=== PATIENT | male | born 1955 | race Caucasian/White ===

== ENCOUNTER 2018-08-07 15:45 | Emergency (ER) | payer OTHER, SELFPAY ==
[2018-08-07 15:51] VITALS: BP 143/87; PULSE 61; RESP 18; TEMP 36.4; O2SAT 95
--- NOTE | 2018-08-07 16:12 | W.ED.GENAD ---
Discharge Plan Disposition Patient Disposition: HOME Condition: Fair Discharge Details Chief Complaint: Orthopedic Clinical Impression: Fracture of distal end of fibula Primary Care Provider: Malachi Doyle ED Provider: Toshia Mejias Home Meds and New Rx's Prescriptions: Continue acetaminophen [Tylenol Arthritis Pain] 650 MG tablet extended release 650 mg PO hs prn RF: 0 TEST STRIPS 1 EACH strip 1 ea Miscellaneous DAILY Qty: 100 RF: 1 TEST STRIPS 1 EACH strip 1 ea Miscellaneous DAILY Qty: 100 RF: 1 aspirin [Aspirin Low-Strength] 81 MG tablet,chewable 81 mg PO DAILY RF: 0 rosuvastatin [Crestor] 20 MG tablet 20 mg PO DAILY Qty: 90 RF: 4 metformin 500 MG tablet extended release 24 hr 1,000 mg PO DAILY Qty: 180 RF: 4 lisinopril 5 MG tablet 5 mg PO DAILY Qty: 90 RF: 4 sertraline 50 MG tablet 1.5 tab PO DAILY Qty: 135 RF: 4 Discharge Instructions Instructions: Leg Fracture (ED) Additional Instructions: Encourage rest, ice, elevation. Tylenol and/or ibuprofen as needed for discomfort. Please keep boot on until evaluated by orthopedics. Use walker to help with ambulation. If you develop new or worsening symptoms please seek care urgently once again. Otherwise, please call orthopedics tomorrow to schedule follow-up appointment. Please follow up [facility] primary care to discuss diabetes. Stand Alone Forms: Work Release Referrals: Lefty Ortega MD [ [facility] STAFF PHYSICIAN] - ([phone]) Malachi Doyle MD [Primary Care Provider] - Discharge Data Discharge Date/Time-TO BE ENTERED AT DEPARTURE: 08/07/18 19:13 Medical Decision Making Patient is a 62 year old male presenting today with c/c of right knee, ankle and foot pain after fall at work. Reports that he slipped on wet floor and fell. Unclear if he struck the knee or ankle, unsure if he suffered a twisting injury. Patient reports since the time of the injury he has had medial sided knee pain, lateral foot and ankle pain. Has peripheral neuropathy associated with DM, denies acute change in sensation. Denies pain elsewhere from the injury. Has been able to ambulate with antalgic gait. Took Tylenol prior to arrival. On exam, patient has focal medial joint line tenderness of the right knee. Full ROM, no ligamentous injury noted. No effusion. Exam of the ankle and foot is significant for pain along the anteriolateral aspect of the ankle. He does express discomfort over the medial malleolus. Pain with palpation over the proximal 5th metatarsal. No swelling or deformity noted. Will augment Tylenol with Ibuprofen. Patient ambulating with slight limp. No acute distress. Will obtain XR of knee, ankle and foot. XR reviewed by myself and significant for distal fibular fracture. Discussed findings with the patient. Plan to place in walking boot and make him NWB with orthopedic f/u. X-ray reviewed by radiologist. They note an obliquely oriented minimally displaced fracture through the distal fibular diaphysis seen only on the lateral projection. Periosteal retraction of the distal posterior tibia. Visualized bones of the foot are intact. No dislocation. Soft tissues are unremarkable. Did recommend further evaluation with CT to evaluate to be of further. X-ray of the foot unremarkable per radiologist. X-ray of the knee without acute fracture dislocation. Joint spaces are normal Discussed with radiologist recommendation of CT with the patient. Will obtain CT with patient in the department CT reviewed by radiologist. Advised minimally displaced oblique distal fibular diaphysis fracture. Calcification of the posterior tibial periosteum versus heterotropic bone formation, possible sequela of prior chronic trauma. No acute tibial fracture identified. Visualized bone of the foot are intact. No dislocation. Moderate degree of subcutaneous fluid and edema within the ankle, predominantly around the lateral aspect Discussed these results wtih the patient. He will remain in walking boot. Has used walker in the past, will use this again to help keep weight off of the ankle. I am concerned given the patient's weight and his diabetes that he may be at higher risk fro difficulty with healing. I discussed this with the patient. Encouraged rest, ice, elevation. Tylenol and/or Motrin as needed for discomfort. I ialso advised that he follow up with primary care to discuss his DM further as he has not had any A1C checked in the past 2 years. He will call orthopedics to schedule appointment. Discussed activities that he should avoid. All of his quesitons adn cconcerns were addressed, he is in agreeemtn with this plan. All ofhis questions and concerns were addressed, he is in agreeement with this plan. HPI General Mode of arrival: ambulatory. Date/Time Provider Initiated Documentation: 08/07/18 16:02. Limitations to Documentation: no limitations. Information obtained by: patient. History of Present Illness 62 year old M presents to the emergency department with the chief complaint of right knee, ankle and foot pain, described as severe, with intensity rated at 10. Quality is described as sharp, and is localized to the right and lower extremity. Patient reports no radiation. Related Data Home Medications Medication Instructions Recorded Confirmed acetaminophen [Tylenol Arthritis 650 mg PO hs prn 09/09/13 11/12/17 Pain] aspirin [Aspirin Low-Strength] 81 mg PO DAILY tab-cap 10/19/15 11/12/17 rosuvastatin [Crestor] 20 mg PO DAILY #90 tab-cap 07/16/17 metformin 1,000 mg PO DAILY #180 tab-cap 08/15/17 lisinopril 5 mg PO DAILY #90 tab-cap 02/28/18 sertraline 1.5 tab PO DAILY #135 tab 05/26/18 Previous Rx's Medication Instructions Recorded rosuvastatin [Crestor] 20 mg PO DAILY #90 tab-cap 07/16/17 metformin 1,000 mg PO DAILY #180 tab-cap 08/15/17 lisinopril 5 mg PO DAILY #90 tab-cap 02/28/18 sertraline 1.5 tab PO DAILY #135 tab 05/26/18 Allergies Allergy/AdvReac Type Severity Reaction Status Date / Time No Known Allergies Allergy Unverified 08/07/18 15:55 General Stated Complaint: Orthopedic ARIADNE: 4 Review of Systems Constitutional Reports as per HPI, Denies chills, Denies fever(s), Denies frequent falls and Denies headache(s) Eyes Denies change in vision ENT Denies dizziness and Denies headache(s) Cardiovascular Denies chest pain, Denies syncope and Denies dyspnea Respiratory Denies cough and Denies dyspnea Gastrointestinal Denies nausea and Denies vomiting Musculoskeletal Reports as per HPI Integumentary/Breasts Denies erythema, Denies rash, Denies skin swelling, Denies sores and Denies wounds Neurologic Denies dizziness, Denies syncope, Denies frequent falls, Denies headache(s) and Reports paresthesias (reports this is chronic and unchanged) PFSH Family History Mother Neoplasm Social History Smoking/Tobacco Use Status: Never Exam Const General: cooperative, healthy appearing, comfortable, no acute distress and well developed Nutritional Appearance: well nourished and obese Orientation: alert and awake [facility] Head: normal to inspection, normocephalic and atraumatic Eyes General: appearance normal, both eyes and all related structures Resp Effort & Inspection: normal respiratory effort, able to speak in complete sentences and no respiratory distress Auscultation: clear to auscultation bilaterally, no rales, no rhonchi and no wheezes Cardio Rate: regular rate Rhythm: regular rhythm Heart Sounds: S1 normal Back/Spine/Pelvis Cervical Spine: normal cervical lordosis and cervical ROM normal Thoracic/Lumbar Spine: thoracic and lumbar spine normal to inspection, paraspinal tenderness, No thoracic spinal tenderness and No lumbar spinal tenderness Skin General skin exam: no rashes or lesions noted Trauma: no lacerations or abrasions Wounds: no wounds Neuro General: alert and awake Cognition: normal cognition Speech: speech normal Gait: antalgic Motor: muscle tone normal throughout Sensory Exam: no sensory deficits noted Extrem Right lower extremity: normal capillary refill, no joint enlargement, hip/thigh Details: normal to inspection, knee Details: tenderness (tenderness along the joint line just medial to the patella. No laxity noted, no pain with ligamentous testing. Full ROM. No swelling, no effusion. No evidence of trauma), normal ROM and knee ligament exam normal; no swelling, no ecchymosis, no crepitus and no unusual warmth, lower leg Details: normal to inspection and no edema; no erythema, no tenderness, no localized swelling, no palpable cords and no pitting edema, ankle Details: tenderness Location: of the lateral malleolus and anteromedially; not of the achilles tendon, no edema and abnormal ROM Details: pain with active ROM and pain with passive ROM; no swelling, no edema, no unusual warmth, no ecchymosis, no crepitus and achilles tendon exam normal and foot Details: normal capillary refill and tenderness Location: of the lateral foot Location: proximally and at the base of 5th metatarsal; no edema Psych Appearance: grossly normal and well kempt Mental Status: mental status grossly normal Speech and Movement: speech and movement normal Course Vital Signs Temperature 36.4 C L 08/07/18 15:51 Pulse 61 08/07/18 15:51 Respiratory Rate 18 08/07/18 15:51 Blood Pressure 143/87 H 08/07/18 15:51 Pulse Oximetry 95 08/07/18 15:51 Temperature 36.4 C L 08/07/18 15:51 Temperature Source Skin 08/07/18 15:51 Pulse 61 08/07/18 15:51 Respiratory Rate 18 08/07/18 15:51 Respiratory Effort 08/07/18 15:54 Blood Pressure 143/87 H 08/07/18 15:51 Blood Pressure Position Sitting 08/07/18 15:51 Pulse Oximetry 95 08/07/18 15:51 Oxygen Delivery Method Room Air 08/07/18 15:51 Oxygen Flow Rate 0 08/07/18 15:51 Pain Level 10 08/07/18 15:51
--- NOTE | 2018-08-07 16:17 | ED.GENADUL_ITS ---
Discharge Plan Disposition Patient Disposition: HOME Condition: Fair Discharge Details Chief Complaint: Orthopedic Clinical Impression: Fracture of distal end of fibula Primary Care Provider: Malachi Doyle ED Provider: Toshia Mejias Home Meds and New Rx's Prescriptions: Continue acetaminophen [Tylenol Arthritis Pain] 650 MG tablet extended release 650 mg PO hs prn RF: 0 TEST STRIPS 1 EACH strip 1 ea Miscellaneous DAILY Qty: 100 RF: 1 TEST STRIPS 1 EACH strip 1 ea Miscellaneous DAILY Qty: 100 RF: 1 aspirin [Aspirin Low-Strength] 81 MG tablet,chewable 81 mg PO DAILY RF: 0 rosuvastatin [Crestor] 20 MG tablet 20 mg PO DAILY Qty: 90 RF: 4 metformin 500 MG tablet extended release 24 hr 1,000 mg PO DAILY Qty: 180 RF: 4 lisinopril 5 MG tablet 5 mg PO DAILY Qty: 90 RF: 4 sertraline 50 MG tablet 1.5 tab PO DAILY Qty: 135 RF: 4 Discharge Instructions Instructions: Leg Fracture (ED) Additional Instructions: Encourage rest, ice, elevation. Tylenol and/or ibuprofen as needed for discomfort. Please keep boot on until evaluated by orthopedics. Use walker to help with ambulation. If you develop new or worsening symptoms please seek care urgently once again. Otherwise, please call orthopedics tomorrow to schedule follow-up appointment. Please follow up [facility] primary care to discuss diabetes. Stand Alone Forms: Work Release Referrals: Lefty Ortega MD [ [facility] STAFF PHYSICIAN] - ([phone]) Malachi Doyle MD [Primary Care Provider] - Discharge Data Discharge Date/Time-TO BE ENTERED AT DEPARTURE: 08/07/18 19:13 Medical Decision Making Patient is a 62 year old male presenting today with c/c of right knee, ankle and foot pain after fall at work. Reports that he slipped on wet floor and fell. Unclear if he struck the knee or ankle, unsure if he suffered a twisting injury. Patient reports since the time of the injury he has had medial sided knee pain, lateral foot and ankle pain. Has peripheral neuropathy associated with DM, denies acute change in sensation. Denies pain elsewhere from the injury. Has been able to ambulate with antalgic gait. Took Tylenol prior to arrival. On exam, patient has focal medial joint line tenderness of the right knee. Full ROM, no ligamentous injury noted. No effusion. Exam of the ankle and foot is significant for pain along the anteriolateral aspect of the ankle. He does express discomfort over the medial malleolus. Pain with palpation over the proximal 5th metatarsal. No swelling or deformity noted. Will augment Tylenol with Ibuprofen. Patient ambulating with slight limp. No acute distress. Will obtain XR of knee, ankle and foot. XR reviewed by myself and significant for distal fibular fracture. Discussed findings with the patient. Plan to place in walking boot and make him NWB with orthopedic f/u. X-ray reviewed by radiologist. They note an obliquely oriented minimally displaced fracture through the distal fibular diaphysis seen only on the lateral projection. Periosteal retraction of the distal posterior tibia. Visualized bones of the foot are intact. No dislocation. Soft tissues are unremarkable. Did recommend further evaluation with CT to evaluate to be of further. X-ray of the foot unremarkable per radiologist. X-ray of the knee without acute fracture dislocation. Joint spaces are normal Discussed with radiologist recommendation of CT with the patient. Will obtain CT with patient in the department CT reviewed by radiologist. Advised minimally displaced oblique distal fibular diaphysis fracture. Calcification of the posterior tibial periosteum versus heterotropic bone formation, possible sequela of prior chronic trauma. No acute tibial fracture identified. Visualized bone of the foot are intact. No dislocation. Moderate degree of subcutaneous fluid and edema within the ankle, predominantly around the lateral aspect Discussed these results wtih the patient. He will remain in walking boot. Has used walker in the past, will use this again to help keep weight off of the ankle. I am concerned given the patient's weight and his diabetes that he may be at higher risk fro difficulty with healing. I discussed this with the patient. Encouraged rest, ice, elevation. Tylenol and/or Motrin as needed for discomfort. I ialso advised that he follow up with primary care to discuss his DM further as he has not had any A1C checked in the past 2 years. He will call orthopedics to schedule appointment. Discussed activities that he should avoid. All of his quesitons adn cconcerns were addressed, he is in agreeemtn with this plan. All ofhis questions and concerns were addressed, he is in agreeement with this plan. HPI General Mode of arrival: ambulatory . Date/Time Provider Initiated Documentation: 08/07/18 16:02 . Limitations to Documentation: no limitations . Information obtained by: patient . History of Present Illness 62 year old M presents to the emergency department with the chief complaint of right knee, ankle and foot pain, described as severe, with intensity rated at 10. Quality is described as sharp, and is localized to the right and lower extremity. Patient reports no radiation. Related Data Home Medications Medication Instructions Recorded Confirmed acetaminophen [Tylenol Arthritis 650 mg PO hs prn 09/09/13 11/12/17 Pain] aspirin [Aspirin Low-Strength] 81 mg PO DAILY tab-cap 10/19/15 11/12/17 rosuvastatin [Crestor] 20 mg PO DAILY #90 tab-cap 07/16/17 metformin 1,000 mg PO DAILY #180 tab-cap 08/15/17 lisinopril 5 mg PO DAILY #90 tab-cap 02/28/18 sertraline 1.5 tab PO DAILY #135 tab 05/26/18 Previous Rx's Medication Instructions Recorded rosuvastatin [Crestor] 20 mg PO DAILY #90 tab-cap 07/16/17 metformin 1,000 mg PO DAILY #180 tab-cap 08/15/17 lisinopril 5 mg PO DAILY #90 tab-cap 02/28/18 sertraline 1.5 tab PO DAILY #135 tab 05/26/18 Allergies Allergy/AdvReac Type Severity Reaction Status Date / Time No Known Allergies Allergy Unverified 08/07/18 15:55 General Stated Complaint: Orthopedic ARIADNE: 4 Review of Systems Constitutional Reports as per HPI, Denies chills, Denies fever(s), Denies frequent falls and Denies headache(s) Eyes Denies change in vision ENT Denies dizziness and Denies headache(s) Cardiovascular Denies chest pain, Denies syncope and Denies dyspnea Respiratory Denies cough and Denies dyspnea Gastrointestinal Denies nausea and Denies vomiting Musculoskeletal Reports as per HPI Integumentary/Breasts Denies erythema, Denies rash, Denies skin swelling, Denies sores and Denies wounds Neurologic Denies dizziness, Denies syncope, Denies frequent falls, Denies headache(s) and Reports paresthesias (reports this is chronic and unchanged) PFSH Family History Mother Neoplasm Social History Smoking/Tobacco Use Status: Never Exam Const General: cooperative, healthy appearing, comfortable, no acute distress and well developed Nutritional Appearance: well nourished and obese Orientation: alert and awake [facility] Head: normal to inspection, normocephalic and atraumatic Eyes General: appearance normal, both eyes and all related structures Resp Effort & Inspection: normal respiratory effort, able to speak in complete sentences and no respiratory distress Auscultation: clear to auscultation bilaterally, no rales, no rhonchi and no wheezes Cardio Rate: regular rate Rhythm: regular rhythm Heart Sounds: S1 normal Back/Spine/Pelvis Cervical Spine: normal cervical lordosis and cervical ROM normal Thoracic/Lumbar Spine: thoracic and lumbar spine normal to inspection, paraspinal tenderness, No thoracic spinal tenderness and No lumbar spinal tenderness Skin General skin exam: no rashes or lesions noted Trauma: no lacerations or abrasions Wounds: no wounds Neuro General: alert and awake Cognition: normal cognition Speech: speech normal Gait: antalgic Motor: muscle tone normal throughout Sensory Exam: no sensory deficits noted Extrem Right lower extremity: normal capillary refill, no joint enlargement, hip/thigh Details: normal to inspection, knee Details: tenderness (tenderness along the joint line just medial to the patella. No laxity noted, no pain with ligamentous testing. Full ROM. No swelling, no effusion. No evidence of trauma) , normal ROM and knee ligament exam normal; no swelling, no ecchymosis, no crepitus and no unusual warmth, lower leg Details: normal to inspection and no edema; no erythema, no tenderness, no localized swelling, no palpable cords and no pitting edema, ankle Details: tenderness Location: of the lateral malleolus and anteromedially; not of the achilles tendon, no edema and abnormal ROM Details: pain with active ROM and pain with passive ROM; no swelling, no edema, no unusual warmth, no ecchymosis, no crepitus and achilles tendon exam normal and foot Details: normal capillary refill and tenderness Location: of the lateral foot Location: proximally and at the base of 5th metatarsal; no edema Psych Appearance: grossly normal and well kempt Mental Status: mental status grossly normal Speech and Movement: speech and movement normal Course Vital Signs Temperature 36.4 C L 08/07/18 15:51 Pulse 61 08/07/18 15:51 Respiratory Rate 18 08/07/18 15:51 Blood Pressure 143/87 H 08/07/18 15:51 Pulse Oximetry 95 08/07/18 15:51 Temperature 36.4 C L 08/07/18 15:51 Temperature Source Skin 08/07/18 15:51 Pulse 61 08/07/18 15:51 Respiratory Rate 18 08/07/18 15:51 Respiratory Effort 08/07/18 15:54 Blood Pressure 143/87 H 08/07/18 15:51 Blood Pressure Position Sitting 08/07/18 15:51 Pulse Oximetry 95 08/07/18 15:51 Oxygen Delivery Method Room Air 08/07/18 15:51 Oxygen Flow Rate 0 08/07/18 15:51 Pain Level 10 08/07/18 15:51
[2018-08-07] MEDS: Ibuprofen 800 MG TAB PO (16:25)
--- NOTE | 2018-08-07 16:40 | DI.COMBO_ITS ---
SYMPTOM/DIAGNOSIS: FELL, PAIN, ? TIBIA FX RIGHT KNEE: Three views were obtained. No fracture is seen. RIGHT ANKLE: Four views were obtained. There is a nondisplaced fracture of the distal fibula. The ankle mortise is well maintained. Apparent osseous material is seen adjacent to posterior tibia. On CT, this had appearance consistent with heterotopic bone formation. No evidence of acute fracture of the tibia or calcaneus as visualized. RIGHT FOOT: Three views were obtained. No fracture is seen. RIGHT ANKLE CT; CT examination of the ankle was performed utilizing multi slice acquisition and multi planar reconstruction. The calcaneus and talus and bones of the mid foot appear intact. There is a mildly displaced fracture of the distal diaphysis of the fibula with no gross disruption of the tibiofibular or talofibular joints. There appears to be heterotopic bone formation posterior to the tibia which is fairly well corticated. The findings are consistent with a remote injury. Please correlate clinically.
--- NOTE | 2018-08-07 17:11 | DI.VRAD_ITS ---
EXAM: XR Right Ankle Complete, 3 or More Views CLINICAL HISTORY: 62 years old, male; Injury or trauma; Fall; Initial encounter; Blunt trauma; Ankle; Right TECHNIQUE: Frontal, lateral and oblique views of the right ankle. COMPARISON: No relevant prior studies available. FINDINGS: Bones/joints: Oblique oriented minimally displaced fracture through the distal fibular diaphysis seen only on lateral projection. Periosteal reaction of the distal posterior tibia. Visualized bones of the foot are intact. No dislocation. Soft tissues: Unremarkable. IMPRESSION: 1. Oblique oriented minimally displaced fracture through the distal fibular diaphysis seen only on lateral projection. 2. Periosteal reaction of the distal posterior tibia, suggestive of possible underlying nonvisualized distal tibial fracture. Recommend further evaluation with CT. Dictated and Authenticated by: Manuel Siu MD. Ordering:TOO HART MD
--- NOTE | 2018-08-07 17:13 | DI.VRAD_ITS ---
EXAM: XR Right Foot Complete, 3 or more Views EXAM DATE/TIME: 08/07/2018 4:12 PM CLINICAL HISTORY: 62 years old, male; Injury or trauma; Fall; Work related; Initial encounter; Blunt trauma; Foot; Right; Injury details: Prox 5th metatarsal pain TECHNIQUE: XR Right foot 3 or more views. COMPARISON: No relevant prior studies available. FINDINGS: Bones/joints: The bones of the foot are intact. No dislocation. Please refer to radiographs of the ankle performed at same time for evaluation of the distal tibia and fibula. Soft tissues: Unremarkable. IMPRESSION: Unremarkable bones of the foot. Please refer to radiographs of the ankle performed at same time for evaluation of the distal tibia and fibula. Dictated and Authenticated by: Manuel Siu MD. Ordering:TOO HART MD
--- NOTE | 2018-08-07 17:14 | DI.VRAD_ITS ---
EXAM: XR Right Knee, 3 Views EXAM DATE/TIME: 08/07/2018 4:40 PM CLINICAL HISTORY: 62 years old, male; Injury or trauma; Fall; Work related; Initial encounter; Blunt trauma; Knee; Bilateral TECHNIQUE: XR Right knee 3 views. COMPARISON: No relevant prior studies available. FINDINGS: Bones/joints: No acute fracture. No dislocation. Joint spaces are normal. Soft tissues: Unremarkable. IMPRESSION: No acute findings. Dictated and Authenticated by: Manuel Siu MD. Ordering:TOO HART MD
--- NOTE | 2018-08-07 18:43 | DI.VRAD_ITS ---
EXAM: CT Right Lower Extremity Without Intravenous Contrast, Ankle CLINICAL HISTORY: 62 years old, male; Injury or trauma; Fall; Work related; Initial encounter; Blunt trauma; Ankle; Right; Injury date: 08/07; Injury details: Fell at work, right ankle pain. TECHNIQUE: Axial computed tomography images of the right ankle without intravenous contrast. All CT scans at this facility use at least one of these dose optimization techniques: automated exposure control; mA and/or kV adjustment per patient size (includes targeted exams where dose is matched to clinical indication); or iterative reconstruction. Coronal and sagittal reformatted images were created and reviewed. COMPARISON: CR XR ANKLE RT COMPLETE 08/07/2018 4:28 PM FINDINGS: Bones/joints: Minimally displaced oblique distal fibular diaphysis fracture. Calcifications of the posterior tibial periosteum versus heterotopic bone formation, possibly sequela of prior chronic trauma. No acute tibial fracture identified. Visualized bones of the foot are intact. No dislocation. Soft tissues: Moderate degree of subcutaneous fluid and edema within the ankle, predominately around the lateral aspect. IMPRESSION: 1. Minimally displaced oblique distal fibular diaphysis fracture. 2. Calcifications of the posterior tibial periosteum versus heterotopic bone formation, possibly sequela of prior chronic trauma. No acute tibial fracture identified. Dictated and Authenticated by: Manuel Siu MD. Ordering:TOO HART MD
[2018-08-07 19:12] VITALS: BP 143/87; PULSE 61; RESP 18; TEMP 36.4; O2SAT 95
== END 2018-08-07 19:13 | disposition home or self-care (01) ==
PROVIDERS: Emergency Provider Physician Assistant; PCP Family Medicine
DX: S82.831A Other fracture of upper and lower end of right fibula, initial encounter for closed fracture (principal); M25.561 Pain in right knee; W01.0XXA Fall on same level from slipping, tripping and stumbling without subsequent striking against object, initial encounter; E11.9 Type 2 diabetes mellitus without complications
CPT/HCPCS: 27786; 73562; 99284; 73610; 73630; 73700; 99282; L4361

== ENCOUNTER 2018-08-08 08:30 | Emergency (ER) | payer BC, SELFPAY ==
[2018-08-08 08:36] VITALS: BP 143/87; PULSE 57; RESP 18; TEMP 36.4; O2SAT 97
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
--- NOTE | 2018-08-08 08:49 | DI.RAD_ITS ---
SYMPTOM/DIAGNOSIS: SOB, SYNCOPE PA AND LATERAL CHEST: The heart is normal in size. The lungs are clear. The mediastinal structures and pleura appear intact. CONCLUSION: Normal chest.
[2018-08-08 09:10] VITALS: RESP 20
[2018-08-08 10:07] LABS: Abs Immature Grans 0.01 k/cumm (0.0-0.09); Absolute Basophil Count 0.02 k/cumm (0.0-0.2); Absolute Eosinophil Count 0.21 k/cumm (0.0-0.7); Absolute Lymphocyte Count 1.25 k/cumm (1.2-3.4); Absolute Monocyte Count 0.59 k/cumm (0.11-0.7); Absolute Neutrophil Count 6.51 k/cumm (1.2-6.7); Basophils % 0.2; Eosinophils % 2.4; HCT 40.9 % (40.0-50.0); HGB 14.1 g/dL (13.5-17.5); Immature Grans % 0.1; Lymphocytes % 14.6; Mean Corp. HGB Concentration 34.5 g/dL (32.0-36.0); Mean Corpuscular Hemoglobin 29.6 pg (27.0-33.0); Mean Corpuscular Volume 85.7 fL (80-95); Mean Platelet Volume 12.3 fL (8.0-11.0); Monocytes % 6.9; Neutrophils % 75.8; Platelet Count 135 x1000/uL (130-400); RBC 4.77 m/cumm (4.50-6.00); RBC Distribution Width 13.6 % (11.8-14.1); White Blood Cell Count 8.59 k/cumm (4.4-10.8)
[2018-08-08 10:28] LABS: ALT 31 U/L (12-78); AST 19 U/L (15-37); Albumin 3.6 g/dL (3.4-5.0); Alkaline Phosphatase 87 U/L (46-116); Anion Gap 11.1 mmol/L (3-11); BUN 21 mg/dL (7-18); Bilirubin, Total 0.9 mg/dL (0.2-1.0); CO2 25.9 mmol/L (21.0-32.0); CREATININE 0.89 mg/dL (0.70-1.30); Calcium 9.1 mg/dL (8.5-10.1); Chloride 102 mmol/L (98-107); Glucose 179 mg/dL (70-100); Potassium 4.1 mmol/L (3.5-5.1); Sodium 139 mmol/L (136-145); TSH 1.79 uIU/mL (0.358-3.74); Total Protein 6.9 g/dL (6.4-8.2)
[2018-08-08 10:30] LABS: Troponin I < 0.02 ng/mL (0.00-0.06)
[2018-08-08 11:08] VITALS: BP 133/81; PULSE 87; RESP 18; TEMP 36.9; O2SAT 95
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
--- NOTE | 2018-08-08 12:45 | PDOC.ERCMPRO ---
Care Management Progress Note 08/08-Dr. Mccarthy requested assistance with a zio patch placement as well as PCP (Dr. Doyle). Called RT and spoke with Yoly. Yoly is coming to the ED to place zio patch. Called CM and spoke with Tiny. Tiny scheduled Bong for , 08/14 at 1:[address] Mccarthy aware of the above and patient given an appt card.
--- NOTE | 2018-08-08 12:48 | NUR.NOTE ---
Nursing Note: this scientific technical writer went to bring patient the Tylenol and ASA. Patient refused to take my ASA and tylenol saying i shouldn't take and hr and half to get a damn Aspirin. This scientific technical writer followed patient in the wheelchair as she tried to convince him to come back into the room. Patient wheeled over this writers foot with the wheelchair. He wheeled himself out to the parking lot without his walking boot and refuses to come back in to finish up his workup.
[2018-08-08 13:44] VITALS: BP 138/76; PULSE 84; RESP 18; TEMP 36.8; O2SAT 97
--- NOTE | 2018-09-03 09:10 | ZIOP_ITS ---
ZIO Patch Report DATE OF DICTATION September 03, 2019 STUDY INDICATION Syncope REQUESTING PROVIDER Malachi Doyle M.D. FINDINGS The patient was monitored for 14 days. COMMENTS The predominant underlying rhythm was sinus rhythm. Average heart rate in sinus rhythm 65 beats per minute, range 44 to 117 beats per minute. There was rare supraventricular ectopy. There were 5 atrial runs, average heart rate 97 beats per minute, range 76 to 112 beats per minute. The longest episode lasted 18 seconds with an average heart rate of 95 beats per minute. There was occasional ventricular ectopy, 1.5% PVCs. There was a 4-beat ventricular run with an average heart rate of 116 beats per minute. There was a one-time episode of daytime sinus bradycardia. There were no pauses greater than 3 seconds. There was no higher degree heart block. There was one patient event that correlated with PVCs. FINAL INTERPRETATION Minor arrhythmias. Gigi Barbosa M.D. RA/beth T - 09/03/2018
== END 2018-08-08 13:46 | disposition home or self-care (01) ==
PROVIDERS: Emergency Provider Student in an Organized Health Care Education/Training Program; PCP Family Medicine
DX: R55 Syncope and collapse (principal); I10 Essential (primary) hypertension; E11.9 Type 2 diabetes mellitus without complications; Z79.84 Long term (current) use of oral hypoglycemic drugs
CPT/HCPCS: 36415; 80053; 93005; 93225; 99285; 70450; 71046; 84443; 84484; 85025; 85610; 85730; 93010

== ENCOUNTER 2018-09-04 01:10 | Outpatient (CLI) | payer BC, SELFPAY ==
--- NOTE | 2018-09-04 07:30 | MERGE_ITS ---
*[facility]* *[facility]* [address] [place] [address] Date of study: 09/04/2018 Transthoracic Echocardiography M-mode, complete 2D, complete spectral Doppler, and color Doppler *STUDY CONCLUSIONS* Summary: 1. Left ventricle: The cavity size was normal. Wall thickness was increased in a pattern of mild LVH. The estimated ejection fraction was 65%. Doppler parameters are consistent with high ventricular filling pressure. 2. Aortic valve: There was severe stenosis. There was mild to moderate regurgitation. Peak velocity (S): 3.9m/sec. Mean gradient (S): 39.6mm Hg. VTI ratio of LVOT to aortic valve: 0.22. Valve area (VTI): 0.7cm^2. 3. Mitral valve: Moderately calcified annulus. Moderately thickened leaflets. There was mild regurgitation. 4. Left atrium: The atrium was mildly dilated. 5. Right ventricle: The cavity size was normal. Wall thickness was normal. Systolic function was normal. 6. Right atrium: The atrium was mildly dilated. 7. Atrial septum: No defect or patent foramen ovale was identified. 8. Tricuspid valve: There was mild-moderate regurgitation. 9. Pulmonary arteries: Pulmonary systolic pressure was in the range of 30mm Hg to 40mm Hg. 10. Inferior vena cava: The vessel was patent and normal in size. The respirophasic diameter changes were in the normal range (greater than or equal to 50%), consistent with normal central venous pressure. *PATIENT PRESENTATION* Height: 180.3cm ((71in) ) S/D Pressure: 119 / 59 Weight: 127kg ((279.4lb) ) BSA: 2.57m^2 Test start time: 07:32 AM. Test stop time: 08:10 AM. PERFORMING Unknown PERFORMING [facility] ORDERING Celeste Pierre REFERRING Celeste Pierre ADDICTIONS COUNSELOR Evette Cristofer, RT (R)(CT), [facility] *PROCEDURE DATA* Procedure information: The patient was identified by two identifiers. This study was interpreted by [facility]. Pertinent images and digital data are archived for permanent storage and are available for subsequent review. No prior study was available for comparison. Study status: Routine. Transthoracic echocardiography. M-mode, complete 2D, complete spectral Doppler, and color Doppler. A Transthoracic Echocardiogram was performed. Scanning was performed from the parasternal, apical, subcostal, and suprasternal notch acoustic windows. Images were obtained using an [id number] cardiac ultrasound machine. Image quality was adequate. Study completion: The patient tolerated the procedure well. History: PMH: Murmur. *CARDIAC ANATOMY* Left ventricle: The cavity size was normal. Wall thickness was increased in a pattern of mild LVH. The estimated ejection fraction was 65%. The tissue Doppler parameters were abnormal. Findings consistent with diastolic dysfunction. Doppler parameters are consistent with high ventricular filling pressure. Aortic valve: Probably trileaflet; moderately thickened, moderately calcified leaflets. Doppler: There was severe stenosis. There was mild to moderate regurgitation. VTI ratio of LVOT to aortic valve: 0.22. Valve area (VTI): 0.7cm^2. Indexed valve area (VTI): 0.3cm^2/m^2. Peak velocity ratio of LVOT to aortic valve: 0.24. Valve area (Vmax): 0.8cm^2. Indexed valve area (Vmax): 0.3cm^2/m^2. Mean velocity ratio of LVOT to aortic valve: 0.2. Valve area (Vmean): 0.7cm^2. Indexed valve area (Vmean): 0.3cm^2/m^2. Mean gradient (S): 39.6mm Hg. Peak gradient (S): 61.2mm Hg. Aorta: Aortic root: The aortic root was normal in size. Ascending aorta: The ascending aorta was normal in size. Mitral valve: Moderately calcified annulus. Moderately thickened leaflets. Doppler: There was no evidence for stenosis. There was mild regurgitation. Valve area by pressure half-time: 3.5cm^2. Indexed valve area by pressure half-time: 1.3cm^2/m^2. Peak gradient (D): 4.3mm Hg. Left atrium: The atrium was mildly dilated. Atrial septum: No defect or patent foramen ovale was identified. Right ventricle: The cavity size was normal. Wall thickness was normal. Systolic function was normal. Pulmonic valve: Doppler: There was no evidence for stenosis. There was no significant regurgitation. Tricuspid valve: Doppler: There was mild-moderate regurgitation. Pulmonary artery: Poorly visualized. Pulmonary systolic pressure was in the range of 30mm Hg to 40mm Hg. Right atrium: The atrium was mildly dilated. Pericardium: There was no pericardial effusion. Systemic veins: Inferior vena cava: Well visualized. The vessel was patent and normal in size. The respirophasic diameter changes were in the normal range (greater than or equal to 50%), consistent with normal central venous pressure. Baseline ECG: Sinus bradycardia. Measurements Left ventricle Value Reference LV ID, ED, PLAX 4.8 cm 3.5 - 6.0 LV ID, ES, PLAX 2.8 cm 2.1 - 4.0 LV PW thickness, ED, PLAX 1.3 cm LV end-diastolic volume, 1-p A2C 119 ml LV ejection fraction, 1-p A2C 66 % LV end-diastolic volume, 1-p A4C 185 ml LV ejection fraction, 1-p A4C 62 % LV e', lateral 0.064 m/sec LV E/e', lateral 16 LV e', medial 0.064 m/sec LV E/e', medial 16 LV e', average 0.064 m/sec LV E/e', average 16 Ventricular septum Value Reference IVS thickness, ED, PLAX 1.2 cm LVOT Value Reference LVOT ID, A-P 2.1 cm LVOT area 3.4 cm^2 LVOT peak velocity, S 0.93 m/sec LVOT mean velocity, S 0.63 m/sec LVOT VTI, S 23.6 cm LVOT peak gradient, S 3.5 mm Hg LVOT mean gradient, S 1.8 mm Hg Stroke volume (SV), LVOT DP 79 ml Stroke index (SV/bsa), LVOT DP 31 ml/m^2 Aortic valve Value Reference Aortic valve peak velocity, S 3.9 m/sec Aortic valve mean velocity, S 3.07 m/sec Aortic valve VTI, S 108.0 cm Aortic mean gradient, S 39.6 mm Hg Aortic peak gradient, S 61.2 mm Hg VTI ratio, LVOT/AV 0.22 Aortic valve area, VTI 0.7 cm^2 Velocity ratio, peak, LVOT/AV 0.24 Aortic valve area, peak velocity 0.8 cm^2 Velocity ratio, mean, LVOT/AV 0.2 Aortic valve area, mean velocity 0.7 cm^2 Aortic valve area/bsa, mean velocity 0.3 cm^2/m^2 Aorta Value Reference Aortic root ID, ED 2.9 cm Ascending aorta ID, A-P, S 2.9 cm Left atrium Value Reference LA ID, A-P, ES 4.9 cm LA ID/bsa, A-P 1.9 cm/m^2 <=2.2 LA area, ES, A4C (H) 25.9 cm^2 8.8 - 23.4 LA area, ES, A2C 29 cm^2 LA volume/bsa, ES, 1-p A4C 42 ml/m^2 LA volume, ES, 2-p 107 ml LA volume/bsa, ES, 2-p 41 ml/m^2 LA/aortic root ratio 1.66 Mitral valve Value Reference Mitral E-wave peak velocity 1.03 m/sec Mitral A-wave peak velocity 0.86 m/sec Mitral deceleration time 219 ms 150 - 230 Mitral pressure half-time 63 ms Mitral peak gradient, D 4.3 mm Hg Mitral E/A ratio, peak 1.2 Mitral valve area, PHT, DP 3.5 cm^2 Pulmonary veins Value Reference Pulmonary vein peak velocity, S 0.48 m/sec Pulmonary vein peak velocity, D 0.62 m/sec Pulmonary vein velocity ratio, peak, 0.78 S/D Pulmonary vein A-wave reversal peak 0.33 m/sec velocity Pulmonary vein A-wave reversal 211 ms duration Tricuspid valve Value Reference Tricuspid regurg peak velocity 2.9 m/sec Tricuspid peak RV-RA gradient 34.7 mm Hg Right atrium Value Reference RA area, ES, A4C (H) 20.7 cm^2 8.3 - 19.5 Legend: (L) and (H) cresencio values outside specified reference range. I have personally reviewed the images and have reviewed and edited the reported findings. Electronically signed by Bong Bond MD 09/04/2018 13:15
== END 2018-09-04 01:30 ==
PROVIDERS: PCP Family Medicine; Visit Provider Internal Medicine
DX: R01.1 Cardiac murmur, unspecified (principal); I08.2 Rheumatic disorders of both aortic and tricuspid valves; I51.7 Cardiomegaly
CPT/HCPCS: 93306

== ENCOUNTER 2018-09-04 06:49 | Outpatient (CLI) | payer BC, SELFPAY ==
[2018-09-04 08:41] LABS: Hemoglobin A1C 6.4 % (4.5-6.2)
== END 2018-09-04 07:09 ==
PROVIDERS: Internal Medicine; PCP Family Medicine; Visit Provider Nurse Practitioner Gerontology
DX: E11.9 Type 2 diabetes mellitus without complications (principal)
CPT/HCPCS: 36415; 83036

== ENCOUNTER 2018-09-10 10:40 | Outpatient (CLI) | payer OTHER, BC, SELFPAY ==
--- NOTE | 2018-09-10 10:25 | DI.RAD_ITS ---
SYMPTOM/DIAGNOSIS: F/U FX RIGHT ANKLE: Three views were obtained and show healing fracture of the distal fibula, old injury of the distal tibia again noted as well. No change in alignment in comparison with examination of 08/07.
== END 2018-09-10 11:00 ==
PROVIDERS: PCP Family Medicine; Visit Provider Orthopaedic Surgery
DX: S82.401D Unspecified fracture of shaft of right fibula, subsequent encounter for closed fracture with routine healing (principal)
CPT/HCPCS: 73610

== ENCOUNTER 2018-10-07 09:32 | Outpatient (CLI) | payer OTHER, SELFPAY ==
--- NOTE | 2018-10-07 09:35 | DI.RAD_ITS ---
SYMPTOMS/DIAGNOSIS: F/U FX RIGHT ANKLE: Progressive healing of a fracture of the distal fibula is noted with no change in alignment when compared with examination of 09/10/2018.
== END 2018-10-07 09:52 ==
PROVIDERS: PCP Family Medicine; Visit Provider Orthopaedic Surgery
DX: S82.401D Unspecified fracture of shaft of right fibula, subsequent encounter for closed fracture with routine healing (principal)
CPT/HCPCS: 73600

== ENCOUNTER 2018-11-04 09:58 | Outpatient (CLI) | payer OTHER, SELFPAY ==
--- NOTE | 2018-11-04 09:53 | DI.RAD_ITS ---
SYMPTOMS/DIAGNOSIS: FRACTURE FOLLOW UP RIGHT ANKLE: Comparison is made with [id number]. There has been continued healing of the distal fibular fracture. There are degenerative changes at the medial tibial talar joint.
== END 2018-11-04 10:18 ==
PROVIDERS: PCP Family Medicine; Visit Provider Physician Assistant Surgical
DX: S82.401D Unspecified fracture of shaft of right fibula, subsequent encounter for closed fracture with routine healing (principal)
CPT/HCPCS: 73600

== ENCOUNTER 2019-08-26 10:49 | Outpatient (CLI) | payer BC, SELFPAY ==
--- NOTE | 2019-08-26 10:41 | DI.RAD_ITS ---
EXAM: XR THUMB RT CLINICAL HISTORY: right thumb pain TECHNIQUE: The study was performed according to the usual protocol. COMPARISON: No exams were available for comparison FINDINGS: Three views were obtained. There are mild hypertrophic degenerative changes seen at the greater mult angular 1st metacarpal joint and 1st MCP joint with slight narrowing of the articular cartilage at ea ch of these joints. No significant findings involving the IP joint of the thumb.
== END 2019-08-26 11:09 ==
PROVIDERS: PCP Family Medicine; Visit Provider Physician Assistant
DX: M79.644 Pain in right finger(s) (principal); M18.11 Unilateral primary osteoarthritis of first carpometacarpal joint, right hand
CPT/HCPCS: 73140

== ENCOUNTER 2021-12-08 03:51 | Outpatient (CLI) | payer BC, SELFPAY ==
[2021-12-08 16:27] LABS: HCT 44.2 % (40.0-50.0); HGB 14.8 g/dL (13.5-17.5); MCH 28.7 pg (27.0-33.0); MCHC 33.5 % (32.0-36.0); MCV 85.8 fL (80-95); MPV 12.5 fL (8.0-11.0); Platelet Count 124 10^3/uL (130-400); RBC 5.15 10^6/uL (4.36-5.78); RDW 13.3 % (11.8-14.1); RDW-SD 41.8 fL; WBC 6.66 10^3/uL (4.4-10.8)
[2021-12-08 16:40] LABS: Hemoglobin A1C 6.9 % (<5.7)
[2021-12-08 17:09] LABS: ALT 37 U/L (16-63); AST 27 U/L (15-37); Albumin 4.2 g/dL (3.4-5.0); Alkaline Phosphatase 76 U/L (46-116); Anion Gap 10.3 mmol/L (3-11); BUN 22 mg/dL (7-18); Bilirubin, Total 0.9 mg/dL (0.2-1.0); CO2 25.7 mmol/L (21.0-32.0); Calcium 8.8 mg/dL (8.5-10.1); Calculated LDL 83 mg/dL (<100); Chloride 104 mmol/L (98-107); Cholesterol 177 mg/dL (<200); Glucose 165 mg/dL (74-106); HDL Cholesterol 41 mg/dL (40-60); Sodium 140 mmol/L (136-145); Total Protein 6.9 g/dL (6.4-8.2); Triglyceride 267 mg/dL (<150)
== END 2021-12-08 03:52 | disposition home or self-care (01) ==
LOC: LBO 03:51
PROVIDERS: PCP Nurse Practitioner Family; Visit Provider Nurse Practitioner Family
DX: I25.10 Atherosclerotic heart disease of native coronary artery without angina pectoris (principal)
CPT/HCPCS: 36415; 80053; 80061; 85027; 83036

== ENCOUNTER 2022-04-08 07:26 | Emergency (ER) | payer BC, SELFPAY ==
[2022-04-08 07:30] VITALS: BP 137/71; PULSE 55; RESP 16; TEMP 36.4; O2SAT 97
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
[2022-04-08] MEDS: Doxycycline Hyclate 100 MG CAP 200 MG PO (07:56)
== END 2022-04-08 07:56 | disposition home or self-care (01) ==
PROVIDERS: Emergency Provider Emergency Medicine; PCP Nurse Practitioner Family
DX: S60.861A Insect bite (nonvenomous) of right wrist, initial encounter (principal); W57.XXXA Bitten or stung by nonvenomous insect and other nonvenomous arthropods, initial encounter
CPT/HCPCS: 99283

== ENCOUNTER 2023-03-20 04:33 | Outpatient (CLI) | payer MEDICARE, BC, SELFPAY ==
[2023-03-20 13:27] LABS: HCT 42.3 % (40.0-50.0); HGB 14.2 g/dL (13.5-17.5); MCH 28.7 pg (27.0-33.0); MCHC 33.6 % (32.0-36.0); MCV 86 fL (80-95); MPV 11.7 fL (8.0-11.0); Platelet Count 108 10^3/uL (130-400); RBC 4.94 10^6/uL (4.36-5.78); RDW 13.5 % (11.8-14.1); RDW-SD 42.4 fL; WBC 4.87 10^3/uL (4.4-10.8)
[2023-03-20 13:40] LABS: Anion Gap 7.3 mmol/L (3-11); BUN 24 mg/dL (7-18); CO2 27.7 mmol/L (21.0-32.0); Calcium 8.7 mg/dL (8.5-10.1); Chloride 108 mmol/L (98-107); Estimated GFR 83.52 (mL/min/1.73m2); Glucose 149 mg/dL (74-106); Sodium 143 mmol/L (136-145)
[2023-03-20 13:45] LABS: Hemoglobin A1C 6.7 % (<5.7)
[2023-03-20 23:04] LABS: PSA, Screening 0.6 ng/mL (<=4.5)
[2023-03-21 10:38] LABS: Hepatitis C Ab w Rflx HCV PCR Negative (Negative)
== END 2023-03-20 04:34 | disposition home or self-care (01) ==
LOC: LBO 04:33
PROVIDERS: PCP Nurse Practitioner Family; Visit Provider Nurse Practitioner Family
DX: Z11.59 Encounter for screening for other viral diseases (principal); E11.9 Type 2 diabetes mellitus without complications; Z12.5 Encounter for screening for malignant neoplasm of prostate
CPT/HCPCS: 36415; 80048; 84153; 85027; 86803; 83036

== ENCOUNTER → 2023-10-22 00:09 | Outpatient (CLI) | payer MEDICARE, BC, SELFPAY ==
--- NOTE | 2023-10-22 09:30 | DI.US_ITS ---
APPROVED REPORT EXAM: Comprehensive 2D, Doppler, and color-flow Echocardiogram Patient Location: Out-Patient Cook Jelly: Sam Vasquez RDCS (AE) Indications: history of aortic stenosis, hx of aortic valve replacement Other Information Study Quality: Adequate. Technically limited study due to body habitus. Conclusion 1. Mildly dilated atria 2. Normal LV systolic function, EF 55-60% 3. Bioprosthetic aortic valve functioning normally. Other valves anatomically normal. Mild TR with mi ld pulmonary hypertension. 4. No intracardiac shunt 5. No pericardial effusion Wall motion Left Ventricle The left ventricle is grossly normal size. Unable to obtain measurements due to body habitus. The lef t ventricular systolic function is normal. The left ventricular ejection fraction is within the horace l range. Unable to obtain measurements due to body habitus. There is normal LV segmental wall motion. There is no ventricular septal defect visualized. LVEF is 56-59%. Right Ventricle The right ventricle is normal size. The RVSP is 44.2 mmHg. Atria Left atrium is moderately dilated. Right atrium is mildly dilated. The interatrial septum is intact w ith no evidence for an atrial septal defect. Aortic Valve Bioprosthetic aortic valve is present. Peak aortic valve gradient is 35.08 mmHg. Highest mean aortic valve gradient is 16.12 mmHg. Calculated JAGDISH by the continuity equation is 1.5 cm2. No aortic regurgi tation is present. Mitral Valve Moderate mitral annular calcification. No evidence of mitral valve stenosis. There is no mitral valve regurgitation noted. Tricuspid Valve The tricuspid valve is normal in structure. There is no tricuspid valve stenosis. There is mild tric uspid regurgitation. The right atrial pressure is estimated at mmHg. Right ventricular systolic press ure is estimated at 44 mmHg. There is mild pulmonary hypertension. Pulmonic Valve Pulmonic valve is not well visualized. There is no pulmonic valvular stenosis. There is no pulmonic v alvular regurgitation. Great Vessels The aortic root is normal in size. Ascending aorta is not well visualized. Aortic arch is not well vi sualized. IVC is normal in size and collapses >50% with inspiration. Pericardium There is no pericardial effusion. 2D Dimensions Ao Root d 2.97 cm M: 3.1 - 3.7 M-Mode TAPSE 1.96 cm (M/F) >1.7 Auto EF LV EDV A4C 176.3 mL LV EDV A2C 193.0 mL LV EDV BP 183.4 mL LV ESV A4C 73.0 mL LV ESV A2C 85.4 mL LV ESV BP 80.6 mL LVEF(%) A4C 58.6 % LVEF(%) A2C 55.8 % LVEF(%) BP 56.1 % LV SV A4C 103.3 ml LV SV A2C 107.6 ml LV SV BP 102.8 ml LV CO A4C 5.5 L/min LV CO A2C 5.9 L/min LV CO BP 5.7 L/min HR A4C 52.93 BPM HR A2C 54.78 BPM LV EDV Index (BP) LA Volume LA Length A4C 6.4 cm LA Length A2C LA Area A4C s 18.80 cm2 LA Area A2C s LA Vol A4C A-L 46.83 mL LA Vol A2C A-L LA Vol Biplane A-L LA Vol A4C MOD 46.3 mL LA Vol A2C MOD LA Vol BP MOD RA Volume RA Area A4C 14.8 cm2 RA ESV A4C (A-L) 39.1mL RA Vol/BSA A4C A-L RA Length A4C 4.8 cm RA ESV A4C (MOD) 36.4mL LV Diastology MV E' medial 0.057 (>0.07 m/s) MV E Vmax 1.05 (0.4-1.3 m/s) MV E/E' MED 18.51 (<14) MV A Vmax 0.85 (0.4-1.3 m/s) MV E' lateral 0.103 (>0.1 m/s) E/A Ratio 1.2 MV E/E' LAT 10.16 (<14) MV E' Average 0.080 m/s MV E/E'(average) 13.12 Aortic Valve AoV Vmax 2.96 m/s LVOT Vmax 1.31 m/s AoV Peak Grad 35.1 mmHg LVOT Peak Grad 6.9 mmHg AoV Area (Vmax) 1.35 cm2 LVOT VTI 0.320 m AoV VTI 0.649 m LVOT Mean Grad 5.5 mmHg AoV Mean Chandu. 1.83 m/s LVOT SV 97.21 mL AoV Mean Grad 16.1 mmHg LVOT Diam s 1.95 cm AoV Area (VTI) 1.50 cm2 Velocity Ratio 0.44 Mitral Valve MV DT 332 (160-240 msec) Pulmonary Valve PV Vmax 1.00 (0.5-1.5 m/s) RVOT Vmax 0.56 m/s PV Peak Grad 4.0 mmHg RVOT Peak Gr. 1.3 mmHg PV Mean Chandu 0.73 m/s RVOT VTI 0.134 m PV Mean Grad 2.3 mmHg RVOT Mean Gr. 0.6 mmHg Tricuspid Valve RA Pressure 3.00 mmHg TR Vmax 3.21 m/s TR Peak Grad 41.2 mmHg RVSP (TR) 44.2 mmHg
== END ==
PROVIDERS: PCP Nurse Practitioner Family; Visit Provider Nurse Practitioner Family
DX: Q23.0 Congenital stenosis of aortic valve (principal); Q23.1 Congenital insufficiency of aortic valve; Z95.2 Presence of prosthetic heart valve
CPT/HCPCS: 93306

== ENCOUNTER 2024-01-28 15:37 | Outpatient (CLI) | payer MEDICARE, BC, SELFPAY ==
[2024-01-28 15:50] LABS: Abs Immature Grans 0.01 10^3/uL (0.0-0.06); Absolute Basophil Count 0.03 10^3/uL (0.0-0.2); Absolute Eosinophil Count 0.09 10^3/uL (0.0-0.7); Absolute Lymphocyte Count 1.19 10^3/uL (1.2-3.4); Absolute Monocyte Count 0.36 10^3/uL (0.1-0.8); Absolute Neutrophil Count 2.76 10^3/uL (1.2-6.7); Basophils % 0.7; HCT 44.4 % (40.0-50.0); HGB 14.6 g/dL (13.5-17.5); Immature Grans % 0.2; Lymphocytes % 26.8; MCH 28.1 pg (27.0-33.0); MCHC 32.9 % (32.0-36.0); MCV 85 fL (80-95); MPV 12.1 fL (8.0-11.0); Monocytes % 8.1; Neutrophils % 62.2; Platelet Count 119 10^3/uL (130-400); RDW 13.7 % (11.8-14.1); RDW-SD 42.6 fL; WBC 4.44 10^3/uL (4.4-10.8)
[2024-01-28 16:33] LABS: Hemoglobin A1C 6.9 % (<5.7)
[2024-01-28 16:53] LABS: Anion Gap 8.7 mmol/L (3-11); BUN 22 mg/dL (7-18); CO2 28.3 mmol/L (21.0-32.0); CREATININE 0.9 mg/dL (0.70-1.30); Calcium 8.7 mg/dL (8.5-10.1); Calculated LDL 110 mg/dL (<100); Chloride 107 mmol/L (98-107); Cholesterol 180 mg/dL (<200); Estimated GFR 94.19 (mL/min/1.73m2); Glucose 131 mg/dL (74-106); HDL Cholesterol 46 mg/dL (40-60); Potassium 4.7 mmol/L (3.5-5.1); Sodium 144 mmol/L (136-145); Triglyceride 122 mg/dL (<150)
== END 2024-01-28 15:38 | disposition home or self-care (01) ==
LOC: LBO 01-30 15:38
PROVIDERS: PCP Nurse Practitioner Family; Visit Provider Nurse Practitioner Family
DX: I25.10 Atherosclerotic heart disease of native coronary artery without angina pectoris (principal); Q23.0 Congenital stenosis of aortic valve; Q23.1 Congenital insufficiency of aortic valve; Z79.01 Long term (current) use of anticoagulants
CPT/HCPCS: 36415; 80048; 80061; 83036; 85025

== ENCOUNTER → 2025-08-31 10:00 | Outpatient (CLI) | payer MEDICARE, BC, SELFPAY ==
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
== END ==
PROVIDERS: Visit Provider Physician Assistant
DX: S69.91XD Unspecified injury of right wrist, hand and finger(s), subsequent encounter (principal); S62.313D Displaced fracture of base of third metacarpal bone, left hand, subsequent encounter for fracture with routine healing; X58.XXXD Exposure to other specified factors, subsequent encounter
CPT/HCPCS: 73140